=== PATIENT | male | born 1950 | race Caucasian/White ===

== ENCOUNTER → 2017-12-15 | Outpatient (CLI) | payer MEDICARE, BC ==
[2017-12-15 12:38] LABS: Basophils % (A) 1 %; Eosinophils # (A) 0.1 k/uL (0-0.7); Eosinophils % (A) 1 %; HCT 47.8 % (39.0-53.0); HGB 16.7 gm/dL (13.0-17.5); Lymphocytes # (A) 1.3 k/uL (1.0-4.8); Lymphocytes % (A) 20 %; MCH 35.5 pg (25.0-35.0); MCV 101.6 fL (80.0-100.0); Macrocytosis Slight; Mean Platelet Volume 7.2; Monocytes # (A) 0.4 k/uL (0-1.0); Monocytes % (A) 7 %; Neutrophils # (A) 4.4 k/uL (1.3-7.7); Neutrophils % (A) 69 %; Platelet Count 228 k/uL (150-450); RBC 4.71 m/uL (4.30-5.90); RDW 15.1 % (11.5-15.5); WBC 6.4 k/uL (3.8-10.6)
[2017-12-18 13:03] LABS: Vitamin B1 60 ug/L (38-122)
== END | disposition home or self-care (01) ==
LOC: LABWHC1 10:06
PROVIDERS: ATTEND Family Medicine
DX: D58.2 Other hemoglobinopathies (principal)
CPT/HCPCS: 36415; 82607; 82728; 82747; 84425; 85025

== ENCOUNTER → 2017-12-15 | Outpatient (CLI) | payer MEDICARE, BC | END | disposition home or self-care (01) | LOC: LABPAT 10:09 | PROVIDERS: ATTEND Surgery | DX: Z01.818 Encounter for other preprocedural examination (principal) | CPT/HCPCS: 93005 ==

== ENCOUNTER 2017-12-20 07:50 | Day surgery (SDC) | payer MEDICARE, BC ==
[2017-12-12 14:11] VITALS: BMI 27.3
[~2017-12-20 07:50] MED LIST: DEXAMETHASONE SOD PHOSPHATE 10 MG/ML 1 ML VIAL IV ONE; HEPARIN SODIUM,PORCINE 5,000 UNIT/ML 1 ML VIAL SQ ONE; HYDROmorphone 0.5 MG/0.5 ML SYRINGE IVP PRN; ONDANSETRON 4 MG/2 ML VIAL IVP ONE; ceFAZolin IN SWFI 2 GM/20 ML SYRINGE IVP ONE
[2017-12-20 08:20] VITALS: RESP 16
[2017-12-20] MEDS: LACTATED RINGERS 1,000 ML IV SCH (08:40)
[2017-12-20] MEDS ORDERED: DEXAMETHASONE SOD PHOSPHATE 10 MG/ML 1 ML VIAL IV ONE (08:44)
[2017-12-20] MEDS ORDERED: HEPARIN SODIUM,PORCINE 5,000 UNIT/ML 1 ML VIAL SQ ONE (08:45)
[2017-12-20] MEDS ORDERED: ONDANSETRON 4 MG/2 ML VIAL IVP ONE (08:45)
--- NOTE | 2017-12-20 09:38 | P.GSHP ---
History of Present Illness H&P Date: 12/20/17 Chief Complaint: Left inguinal hernia, umbilical hernia This is a 67-year-old male who presents today for laparoscopic robotic system repair of left inguinal hernia and umbilical hernia. Patient developed painful mass left groin. Past Medical History Past Medical History: Eye Disorder, Hypertension Additional Past Medical History / Comment(s): inguinal and umbilical hernia, glaucoma, seasonal allergies, HX OF SCIATICA PAIN History of Any Multi-Drug Resistant Organisms: None Reported Additional Past Surgical History / Comment(s): vitaly cataract sx, sx for glaucoma Past Anesthesia/Blood Transfusion Reactions: No Reported Reaction Smoking Status: Former smoker - Past Family History Father Family Medical History: Cancer Additional Family Medical History / Comment(s): prostate Brother(s) Family Medical History: Cancer Additional Family Medical History / Comment(s): 2 half brothers hx of prostate CA Medications and Allergies Home Medications Medication Instructions Recorded Confirmed Type Benazepril HCl [Lotensin] 20 mg PO QAM 12/12/17 12/12/17 History Cbd Oil 1 applic PO DAILY 12/12/17 History Cetirizine HCl [Zyrtec] 10 mg PO DAILY 12/12/17 12/12/17 History Travoprost [Travatan Z 0.004%] 1 drop BOTH EYES HS 12/12/17 12/12/17 History Allergies Allergy/AdvReac Type Severity Reaction Status Date / Time No Known Allergies Allergy Verified 12/12/17 14:02 Surgical - Exam Vital Signs Temp Pulse Resp BP Pulse Ox 98.4 F 83 16 183/88 97 12/20/17 08:16 12/20/17 08:16 12/20/17 08:16 12/20/17 08:16 12/20/17 08:16 - General well developed, no distress - Eyes PERRL - ENT normal pinna - Neck no masses - Respiratory normal expansion - Cardiovascular Rhythm: regular - Abdomen Abdomen: soft, non tender Hernia: inguinal (Reducible left and one hernia), umbilical (Small umbilical hernia) Assessment and Plan Assessment: Left inguinal hernia Umbilical hernia We'll perform laparoscopic robotic-assisted repair.
[2017-12-20] MEDS ORDERED: KETOROLAC 30 MG/ML 1 ML VIAL ONE (10:07)
[2017-12-20] MEDS ORDERED: PROPOFOL 10 MG/ML 20 ML VIAL IV ONE (10:07)
[2017-12-20] MEDS ORDERED: SUCCINYLCHOLINE CHLORIDE 100 MG/5 ML SYR IV ONE (10:07)
[2017-12-20] MEDS ORDERED: fentaNYL (PF) 50 MCG/ML 2 ML AMP ONE (10:07)
[2017-12-20] MEDS ORDERED: MIDAZOLAM 2 MG/2 ML VIAL ONE (10:07)
[2017-12-20] MEDS ORDERED: NEOSTIGMINE 1 MG/ML 10 ML VIAL ONE (10:07)
[2017-12-20] MEDS ORDERED: LABETALOL 5 MG/ML VIAL MDV ONE (10:07)
[2017-12-20] MEDS ORDERED: ROCURONIUM BROMIDE 10 MG/ML 10 ML VIAL IV ONE (10:07)
[2017-12-20] MEDS ORDERED: GLYCOPYRROLATE 0.2 MG/ML 2 ML VIAL ONE (10:07)
[2017-12-20] MEDS ORDERED: BUPIVACAINE (PF) 0.5% 30 ML VIAL SQ ONE (10:26)
[2017-12-20 11:15] VITALS: TEMP 97.8
[2017-12-20 12:42] VITALS: BP 156/93; PULSE 65
--- NOTE | 2018-01-16 15:26 | P.OP ---
Date of Procedure: 12/20/17 Preoperative Diagnosis: Left inguinal hernia Umbilical hernia Postoperative Diagnosis: Left inguinal hernia Umbilical hernia Procedure(s) Performed: Robotic-assisted repair of left inguinal hernia Laparoscopic repair of umbilical hernia Anesthesia: SCOTT Surgeon: Gigi Marshall Estimated Blood Loss (ml): 5 Pathology: none sent Condition: stable Disposition: PACU Description of Procedure: The patient was placed on the operating table in the supine position. The patient received general anesthesia. The patient's abdomen was prepped and draped in usual sterile fashion. The skin was anesthetized 1% local Xylocaine at the incision sites. Using an 11 blade a skin incision was made at the umbilicus. Patient had a small vocal hernia. The fascia was grasped with a Swifton and then the peritoneal cavity was entered with the Veress needle. Position of the Veress needle was confirmed with a positive drop test. After adequate insufflation a 5 mm trocar was placed into the peritoneal cavity. The Laparoscope was placed the peritoneal cavity. And a robotic 8 mm trocar was placed in the right lateral position and then another 8 mm robotic trochars placed in the left lateral position. The original 5 mm trocar was exchanged for a 12 mm trocar. The patient was placed in reverse Trendelenburg and then the patient was docked to the robot. Next the peritoneum over top of the hernia was incised and then using blunt and sharp dissection and electrocautery the hernia sac was dissected free from the floor of the inguinal canal. The hernia sac was completely reduced into the peritoneal cavity. And then using the Pro senior research consultant mesh the hernia was repaired. The peritoneum was then sutured with 2-0V lock suture. The patient was then undocked the robot. The needle was withdrawn from the peritoneal cavity. The umbilical hernia site was closed with 0 Ethibond suture. The skin was closed interrupted 3-0 Monocryl suture. Dermabond dressing was applied. Patient was sent to recovery in stable condition.
== END 2017-12-20 13:16 | disposition home or self-care (01) ==
LOC: OR 07:50
PROVIDERS: ATTEND Surgery
DX: K40.90 Unilateral inguinal hernia, without obstruction or gangrene, not specified as recurrent (principal); K42.9 Umbilical hernia without obstruction or gangrene; I10 Essential (primary) hypertension; H40.9 Unspecified glaucoma; J30.2 Other seasonal allergic rhinitis; Z79.899 Other long term (current) drug therapy; F17.210 Nicotine dependence, cigarettes, uncomplicated
CPT/HCPCS: 86900; 86901; 86850; 36415; 49650; 49652; C1781; J2250; J1644; J1100; J2710; J2405; J3010; J1885; J0330; J2704; J0690